=== PATIENT | male | born 1990 | race Caucasian/White ===

== ENCOUNTER 2021-01-25 08:27 | Outpatient (CLI) | payer OTHER ==
--- NOTE | 2021-01-25 08:52 | XRAY Report ---
PROCEDURE: Chest 2 View X-Ray INDICATIONS: COUGH TECHNIQUE: 2 view(s) of the chest. COMPARISON: None. FINDINGS: Surgical changes and devices: None. Lungs and pleura: No pleural effusions or pneumothorax. Lungs are clear. Mediastinum: Mediastinal contours are normal. Heart size is normal. Bones and chest wall: No suspicious bony abnormalities. Soft tissues appear unremarkable. IMPRESSION: No acute cardiopulmonary process demonstrated radiographically. Reviewed by: Kike Raymundo MD on 01/25/2021 8:51 AM PDT Approved by: Kike Raymundo MD on 01/25/2021 8:51 AM PDT Station ID: [id number]
== END 2021-01-25 23:59 | disposition home or self-care (01) ==
LOC: DI.N 08:27
PROVIDERS: ATTEND Family Medicine
DX: R05 Cough (principal); Z20.822 Contact with and (suspected) exposure to COVID-19

== ENCOUNTER 2021-07-01 20:45 | Outpatient (CLI) | payer OTHER | END 2021-07-01 20:46 | disposition critical access hospital (66) | LOC: EMS 20:45 | DX: R45.89 Other symptoms and signs involving emotional state (principal) | CPT/HCPCS: A0425; A0429 ==

== ENCOUNTER 2021-07-01 21:11 | Emergency (ER) | payer OTHER ==
[2021-07-01 21:25] VITALS: BP 133/86
--- NOTE | 2021-07-01 21:57 | ED Physician Documentation ---
History of Present Illness - Stated complaint Stated Complaint: SI, ETOH - Chief complaint Chief Complaint: MHE - History obtained from History obtained from: Patient - Additonal information Additional information: Patient is brought to the emergency department By EMS for chief complaint of alcohol intoxication and possible suicidal ideation. The patient admits to drinking tonight, but that he is not suicidal and was not. The patient states that he and his have been having some issues, and they have been trying to work through the difficult parts of their marriage. He states he has also had a lot of stress at his job at the [employer]. [place] that [place] "probably should" take advantage of that resource. He states that today, he had had a stressful day at work and came home and had a few shots of alcohol. Patient states he usually does not drink that much, but admits that he got "drunk". He states he got into a heated conversation with his , and then proceeded to talk to 2 of his friends on the phone. He is not sure who called the police, and they are not immediately here to provide a perspective. However, the patient is adamant that he never made any suicidal statements to anybody. The only thing he can think of is that he told his "I just do not even know what to do anymore". The patient states he was talking about their relationship problems, not about whether or not he should live. The patient states he has 3 children and that he is adamant that he would never commit suicide for that reason alone. He also states that he still loves his and even cares about his ex-, both of whom are the mothers of his children. He states he has good friends and has also had some good relationships at work, though he currently does not like his superior. 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 He denies any history of ever trying to harm himself. He is not on any mental health medications. No other substance abuse. No other complaints at this time. Review of Systems Ten Systems: 10 systems reviewed and negative Constitutional: reports: Reviewed and negative Eyes: reports: Reviewed and negative Ears: reports: Reviewed and negative Nose: reports: Reviewed and negative Throat: reports: Reviewed and negative Cardiac: reports: Reviewed and negative Respiratory: reports: Reviewed and negative GI: reports: Reviewed and negative : reports: Reviewed and negative Skin: reports: Reviewed and negative Musculoskeletal: reports: Reviewed and negative Neurologic: reports: Reviewed and negative Psychiatric: reports: Reviewed and negative Endocrine: reports: Reviewed and negative Immunocompromised: reports: Reviewed and negative PD PAST MEDICAL HISTORY - Past Medical History Past Medical History: No Cardiovascular: None Respiratory: None Neuro: None Endocrine/Autoimmune: None GI: None : None HEENT: None Psych: None Musculoskeletal: None Derm: None - Allergies Allergies/Adverse Reactions: Allergies Allergy/AdvReac Type Severity Reaction Status Date / Time No Known Drug Allergies Allergy Verified 07/01/21 21:21 - Social History Does the pt smoke?: No Smoking Status: Current every day smoker Does the pt drink ETOH?: Yes ETOH Use: Wine, Liquor Does the pt have substance abuse?: No - Immunizations Immunizations are current?: Yes - POLST Patient has POLST: No PD ED PE NORMAL - Vitals Vital signs reviewed: Yes - General General: Alert and oriented X 3, Well developed/nourished, Other (Patient is initially tearful and appears upset but otherwise no apparent distress.) - HEENT HEENT: Atraumatic, PERRL, EOMI, Moist mucous membranes - Neck Neck: Supple, no meningeal sign - Respiratory Respiratory: No respiratory distress - Abdomen Abdomen: Soft - Derm Derm: Normal color, Warm and dry, No rash - Extremities Extremities: No deformity, Normal ROM s pain, No edema - Neuro Neuro: Alert and oriented X 3, border police 2-12 intact, Normal speech, Other (Patient appears mildly clinically intoxicated but is coherent and does not display focal deficits.) - Psych Psych: Other (The patient initially appears emotionally upset and tearful, but becomes calm and engaged throughout our conversation.) Results - Vitals Vitals: Vital Signs - 24 hr 07/01/21 21:21 Temperature 36.9 C Heart Rate 78 Respiratory 18 Rate Blood Pressure 133/86 H O2 Saturation 95 Oxygen O2 Source Room air PD MEDICAL DECISION MAKING - ED course Complexity details: considered differential, d/w patient, other ED course: I spent a very long time, between 45 minutes and an hour, talking to this patient. The patient had arrived as an apparent involuntary transport, though we did not receive paperwork or have a visit with the control panel assembler until sometime after my evaluation. The patient seemed upset on arrival but was absolutely adamant that he was not suicidal and gave very solid preventative factors in the form of his children and the mothers of his children. He also listed hobbies, especially mechanics, as being a good mental outlook for him. He noted that while he does have some marital troubles, he and his are trying to work things out, and he is very anxious for this to happen. He also had a fairly strong support system between the [employer] and his friends. The patient was mildly intoxicated, but seemed clearer thinking. He was willing to promise that he would call 911 or come back to the emergency department, should he begin feeling suicidal., though he does not think he will get to feeling that bad. I felt he was stable for discharge home. After the patient left with a sober ride, the control panel assembler did stop in with his report. He stated that the patient's had told him that the patient has struggled with depression on and off for a long time and that he has not been getting help with it. The patient is always worse when he drinks according to the and she told the control panel assembler that this was the most emotionally unstable she had seen him. The control panel assembler states that he also talked to the patient for about an hour and that the patient was quite emotionally labile at that time. The control panel assembler had also spoken with the patient's senior chief, who stated that the patient had been having emotional and behavioral issues at work, and that she thought the patient should have some mental health intervention. [place] the patient seems willing to avail himself of these resources. Unfortunately, neither the senior chief nor the patient's provided this information to the emergency department prior to the patient's departure. However, based on a very thorough evaluation here, the patient seems to overall be a good candidate for outpatient management at this point in time, given the level of support he has, as well as the preventative factors listed above. Departure - Departure Disposition: 01 Home, Self Care Clinical Impression: Situational stress Alcohol intoxication Qualifiers: Complication of substance-induced condition: uncomplicated Qualified Code(s): F10.920 - Alcohol use, unspecified with intoxication, uncomplicated Condition: Stable Instructions: ED Stress React, ED Depression, ED Alcohol Intoxication Discharge Date/Time: 07/01/21 22:03
== END 2021-07-01 22:03 | disposition home or self-care (01) ==
LOC: EDUNIT# → ED 21:11
DX: F43.9 Reaction to severe stress, unspecified (principal); F10.129 Alcohol abuse with intoxication, unspecified; F17.200 Nicotine dependence, unspecified, uncomplicated
CPT/HCPCS: 99283